=== PATIENT | male | born 1955 | race Two or more races ===

== ENCOUNTER 2017-11-16 21:05 | Emergency (ER) | payer MEDICARE, OTHER ==
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
[2017-11-16 21:42] LABS: Basophils % (A) 1 %; Eosinophils # (A) 0.1 k/uL (0-0.7); Eosinophils % (A) 2 %; HCT 40.2 % (39.0-53.0); HGB 13.1 gm/dL (13.0-17.5); Lymphocytes % (A) 43 %; MCH 27.3 pg (25.0-35.0); MCHC 32.6 g/dL (31.0-37.0); MCV 83.7 fL (80.0-100.0); Monocytes # (A) 0.5 k/uL (0-1.0); Monocytes % (A) 8 %; Neutrophils # (A) 3.2 k/uL (1.3-7.7); Neutrophils % (A) 45 %; Platelet Count 239 k/uL (150-450); RBC 4.81 m/uL (4.30-5.90); RDW 13.8 % (11.5-15.5)
[2017-11-16 21:59] LABS: INR 1.2 (<1.2); Partial Thromboplastin Time 23.1 sec (22.0-30.0); Prothrombin Time 11.2 sec (9.0-12.0)
--- NOTE | 2017-11-16 22:02 | XR ---
EXAMINATION TYPE: XR chest 1V portable DATE OF EXAM: 11/16/2017 COMPARISON: NONE INDICATION: Chest pain TECHNIQUE: Single frontal view of the chest is obtained. FINDINGS: The heart size is normal. The pulmonary vasculature is normal. The lungs are clear. Sternotomy wires from previous CABG are evident. IMPRESSION: 1. No acute pulmonary process.
[2017-11-16 22:04] LABS: Albumin 4.2 g/dL (3.5-5.0); Calcium 9.9 mg/dL (8.4-10.2); Magnesium 2.1 mg/dL (1.6-2.3); Potassium 5.8 mmol/L (3.5-5.1); Total Bilirubin 0.3 mg/dL (0.2-1.3); Total Protein 7.3 g/dL (6.3-8.2)
[2017-11-16] MEDS ORDERED: SODIUM POLYSTYRENE SULFONATE 15 GM/60 ML BOTTLE PO STA (23:03)
[2017-11-16 23:09] VITALS: RESP 20
[2017-11-17 00:52] VITALS: BP 116/59; PULSE 61; TEMP 97
== END 2017-11-17 00:52 | disposition home or self-care (01) ==
LOC: EC 21:05
DX: R07.2 Precordial pain (principal); F03.90 Unspecified dementia, unspecified severity, without behavioral disturbance, psychotic disturbance, mood disturbance, and anxiety; E87.5 Hyperkalemia; N28.9 Disorder of kidney and ureter, unspecified; Z88.8 Allergy status to other drugs, medicaments and biological substances
CPT/HCPCS: 36415; 71045; 80053; 83735; 84484; 85025; 85610; 85730; 93005; 99285

== ENCOUNTER 2017-12-01 17:30 | Emergency (ER) | payer MEDICARE, OTHER ==
[2017-12-01 17:48] VITALS: RESP 18
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
[2017-12-01 19:00] LABS: Basophils # (A) 0.1 k/uL (0-0.2); Basophils % (A) 1 %; Eosinophils # (A) 0.2 k/uL (0-0.7); Eosinophils % (A) 2 %; HCT 40.2 % (39.0-53.0); HGB 13.4 gm/dL (13.0-17.5); Lymphocytes # (A) 3.5 k/uL (1.0-4.8); Lymphocytes % (A) 46 %; MCH 28.1 pg (25.0-35.0); MCHC 33.4 g/dL (31.0-37.0); Mean Platelet Volume 7.6; Monocytes # (A) 0.6 k/uL (0-1.0); Monocytes % (A) 8 %; Neutrophils # (A) 3.1 k/uL (1.3-7.7); Neutrophils % (A) 40 %; Platelet Count 244 k/uL (150-450); RBC 4.79 m/uL (4.30-5.90); RDW 14.6 % (11.5-15.5); WBC 7.6 k/uL (3.8-10.6)
[2017-12-01 19:09] LABS: Appearance,Urine Clear (Clear); Bilirubin,Urine Negative (Negative); Blood,Urine Negative (Negative); Color,Urine Light Yellow; Glucose,Urine (UA) 1+ (Negative); Ketones,Urine Negative (Negative); Leukocyte Esterase,Urine Negative (Negative); Nitrite,Urine Negative (Negative); PH, Urine 7.5 (5.0-8.0); Protein,Urine Negative (Negative); Urobilinogen,Urine <2.0 mg/dL (<2.0)
[2017-12-01 19:10] LABS: Albumin 4.2 g/dL (3.5-5.0); Calcium 9.8 mg/dL (8.4-10.2); Potassium 5.3 mmol/L (3.5-5.1); Total Bilirubin 0.3 mg/dL (0.2-1.3); Total Protein 7.2 g/dL (6.3-8.2)
[2017-12-01 19:12] LABS: Amphetamine Screen,Urine Not Detected (NotDetected); Benzodiazepines Screen,Urine Not Detected (NotDetected); Cocaine Screen,Urine Not Detected (NotDetected); Opiate Screen,Urine Not Detected (NotDetected); Phencyclidine Screen,Urine Not Detected (NotDetected); Urn Cannabinoid Scrn Not Detected (NotDetected)
[2017-12-01 19:13] LABS: Barbiturate Screen,Urine Not Detected (NotDetected); Methadone Screen, Urine Not Detected (NotDetected); Oxycodone Screen, Urine Not Detected (NotDetected); Tricyclic Antidepressant,Urine Detected (NotDetected)
[2017-12-01 21:21] VITALS: BP 153/73; PULSE 68; TEMP 97.3
== END 2017-12-01 21:33 | disposition short-term general hospital (02) ==
LOC: EC 17:30
DX: F03.90 Unspecified dementia, unspecified severity, without behavioral disturbance, psychotic disturbance, mood disturbance, and anxiety (principal); R45.1 Restlessness and agitation; I25.119 Atherosclerotic heart disease of native coronary artery with unspecified angina pectoris; E11.9 Type 2 diabetes mellitus without complications; K21.9 Gastro-esophageal reflux disease without esophagitis; E78.5 Hyperlipidemia, unspecified; I10 Essential (primary) hypertension; G40.909 Epilepsy, unspecified, not intractable, without status epilepticus; Z79.4 Long term (current) use of insulin; Z79.01 Long term (current) use of anticoagulants; Z79.82 Long term (current) use of aspirin; Z79.899 Other long term (current) drug therapy; Z88.8 Allergy status to other drugs, medicaments and biological substances
CPT/HCPCS: 36415; 80053; 80306; 81003; 82075; 85025; 93005; 99285

== ENCOUNTER 2017-12-05 17:19 | Emergency (ER) | payer MEDICARE, OTHER ==
[2017-12-05 17:38] VITALS: TEMP 98
--- NOTE | 2017-12-05 17:38 | ED ---
Medical Clearance HPI - General Stated complaint: Mental Health Time Seen by Provider: 12/05/17 17:25 - History of Present Illness Initial comments: Patient is a 62-year-old male presenting from [facility] for aggressive behavior. He has been here earlier this week for similar type behavior and the facility petition him. Patient is combative and unable and unwilling to provide review of systems. Home medications: Home Medications Medication Instructions Recorded Confirmed Acarbose 100 mg PO BID 12/01/17 12/05/17 Acetaminophen Tab [Tylenol Tab] 650 mg PO Q4H PRN 12/01/17 12/05/17 Aspirin [Adult Low Dose Aspirin EC] 81 mg PO DAILY 12/01/17 12/05/17 Atorvastatin Calcium [Lipitor] 20 mg PO HS 12/01/17 12/05/17 Bisacodyl [Dulcolax] 10 mg RECTAL DAILY PRN 12/01/17 12/05/17 Cholecalciferol [Vitamin D3] 1,000 unit PO HS 12/01/17 12/05/17 Clopidogrel Bisulfate [Plavix] 75 mg PO DAILY 12/01/17 12/05/17 Cyanocobalamin [Vitamin B-12] 1,000 mcg PO DAILY 12/01/17 12/05/17 Divalproex Sodium 500 mg PO BID 12/01/17 12/05/17 Famotidine [Pepcid] 20 mg PO HS 12/01/17 12/05/17 Gemfibrozil [Lopid] 300 mg PO BID 12/01/17 12/05/17 Insulin Aspart [NovoLOG 6 unit SQ TID 12/01/17 12/05/17 (formulary)] Lacosamide [Vimpat] 100 mg PO BID 12/01/17 12/05/17 Metoprolol Tartrate [Lopressor] 12.5 mg PO BID 12/01/17 12/05/17 PARoxetine HCL 30 mg PO HS 12/01/17 12/05/17 Polyethylene Glycol 3350 [Miralax] 17 gm PO BID 12/01/17 12/05/17 Sennosides [Senna] 17.2 mg PO HS 12/01/17 12/05/17 glipiZIDE [Glucotrol] 10 mg PO BID 12/01/17 12/05/17 Insulin Glargine,Hum.rec.anlog 44 unit SQ HS 12/05/17 12/05/17 [Gudelia Walker U-100] Allergies/Adverse reactions: Allergies Allergy/AdvReac Type Severity Reaction Status Date / Time metformin AdvReac Unknown Verified 12/05/17 18:33 Review of Systems ROS Statement: Those systems with pertinent positive or pertinent negative responses have been documented in the HPI. Unable to complete review of systems as the patient is agitated ROS Other: All systems not noted in ROS Statement are negative. Past Medical History Past Medical History: Coronary Artery Disease (CAD), Dementia, Diabetes Mellitus , GERD/Reflux, Hyperlipidemia, Hypertension, Seizure Disorder Additional Past Medical History / Comment(s): angina, History of Any Multi-Drug Resistant Organisms: None Reported Past Surgical History: Unable to Obtain Additional Past Surgical History / Comment(s): 2 heart sugeries but is unsure what was done. Past Psychological History: No Psychological Hx Reported Smoking Status: Never smoker Past Alcohol Use History: None Reported Past Drug Use History: None Reported General Exam - General Exam Comments Initial Comments: Constitutional: Pt is oriented to person, place, and time. Pt appears well- developed and well-nourished. HENT: Head: Normocephalic and atraumatic. Eyes: EOM are normal. Neck: Normal range of motion. Neck supple. Cardiovascular: Normal rate, regular rhythm, S1 normal, S2 normal and normal heart sounds. Exam reveals no gallop and no friction rub. No murmur heard. Pulmonary/Chest: Effort normal and breath sounds normal. No tachypnea and no bradypnea. No respiratory distress. No wheezes or rales noted. Abdominal: Soft. Bowel sounds are normal. Pt exhibits no shifting dullness, no distension, no pulsatile liver, no fluid wave, no abdominal bruit and no ascites. There is no tenderness. There is no rigidity, no rebound, no guarding, no tenderness at McBurney's point and negative Bailon's sign. Musculoskeletal: Normal range of motion. Neurological: Pt is alert and oriented to person, place, and time. No cranial nerve deficit. Skin: Skin is warm and dry. No rash noted. Pt is not diaphoretic. No erythema. No pallor. Psychiatric: Patient is visibly agitated and angry walking about the room stating that he is going to walk out.. Course Vital Signs 12/05/17 12/05/17 17:35 23:44 Temperature 98.0 F 98.0 F Pulse Rate 70 62 Respiratory 16 18 Rate Blood Pressure 151/83 146/70 O2 Sat by Pulse 99 100 Oximetry - Reevaluation(s) Reevaluation #1: 12/05/17 19:28 Patient is becoming more belligerent and aggressive. Patient will be given 2 mg of Ativan IM. Reevaluation #2: 12/05/17 20:10 Spoke with psychiatry nurse and it is requested that laboratory studies as well as urinalysis be obtained to rule out possible infectious etiology. Medical Decision Making - Medical Decision Making Patient has been evaluated multiple times by psychiatric nurse and it is determined that the patient will be placed in a geriatric psych facility. There is no evidence of infectious process causing the symptoms. - Lab Data Result diagrams: 12/05/17 20:23 12/05/17 20:23 Lab Results 12/05/17 12/05/17 12/05/17 Range/Units 20:23 20:23 20:23 WBC 8.3 (3.8-10.6) k/uL RBC 4.80 (4.30-5.90) m/uL Hgb 13.4 (13.0-17.5) gm/dL Hct 39.8 (39.0-53.0) % MCV 82.8 (80.0-100.0) fL MCH 27.9 (25.0-35.0) pg MCHC 33.6 (31.0-37.0) g/dL RDW 14.7 (11.5-15.5) % Plt Count 218 (150-450) k/uL Neutrophils % 55 % Lymphocytes % 35 % Monocytes % 7 % Eosinophils % 1 % Basophils % 0 % Neutrophils # 4.5 (1.3-7.7) k/uL Lymphocytes # 2.9 (1.0-4.8) k/uL Monocytes # 0.6 (0-1.0) k/uL Eosinophils # 0.1 (0-0.7) k/uL Basophils # 0.0 (0-0.2) k/uL Sodium 136 L (137-145) mmol/L Potassium 5.2 H (3.5-5.1) mmol/L Chloride 96 L (98-107) mmol/L Carbon Dioxide 23 (22-30) mmol/L Anion Gap 17 mmol/L BUN 21 H (9-20) mg/dL Creatinine 1.50 H (0.66-1.25) mg/dL Est GFR (CKD-EPI)AfAm 56 (>60 ml/min/1.73 sqM) Est GFR (CKD-EPI)NonAf 49 (>60 ml/min/1.73 sqM) Glucose 229 H (74-99) mg/dL POC Glucose (mg/dL) (75-99) mg/dL POC Glu Account Financial Manager ID Calcium 9.9 (8.4-10.2) mg/dL Magnesium 2.0 (1.6-2.3) mg/dL Total Bilirubin 0.3 (0.2-1.3) mg/dL AST 18 (17-59) U/L ALT 24 (21-72) U/L Alkaline Phosphatase 72 (38-126) U/L Total Protein 7.6 (6.3-8.2) g/dL Albumin 4.5 (3.5-5.0) g/dL Urine Color Yellow Urine Appearance Clear (Clear) Urine pH 6.0 (5.0-8.0) Ur Specific [place] 1.014 (1.001-1.035) Urine Protein Trace H (Negative) Urine Glucose (UA) 3+ H (Negative) Urine Ketones Negative (Negative) Urine Blood Negative (Negative) Urine Nitrite Negative (Negative) Urine Bilirubin Negative (Negative) Urine Urobilinogen <2.0 (<2.0) mg/dL Ur Leukocyte Esterase Negative (Negative) Urine Opiates Screen Not Detected (NotDetected) Ur Oxycodone Screen Not Detected (NotDetected) Urine Methadone Screen Not Detected (NotDetected) Ur Propoxyphene Screen Not Detected (NotDetected) Ur Barbiturates Screen Not Detected (NotDetected) U Tricyclic Antidepress Detected H (NotDetected) Ur Phencyclidine Scrn Not Detected (NotDetected) Ur Amphetamines Screen Not Detected (NotDetected) U Methamphetamines Scrn Not Detected (NotDetected) U Benzodiazepines Scrn Not Detected (NotDetected) Urine Cocaine Screen Not Detected (NotDetected) U Marijuana (THC) Screen Not Detected (NotDetected) 05/25/18 Range/Units 22:14 WBC (3.8-10.6) k/uL RBC (4.30-5.90) m/uL Hgb (13.0-17.5) gm/dL Hct (39.0-53.0) % MCV (80.0-100.0) fL MCH (25.0-35.0) pg MCHC (31.0-37.0) g/dL RDW (11.5-15.5) % Plt Count (150-450) k/uL Neutrophils % % Lymphocytes % % Monocytes % % Eosinophils % % Basophils % % Neutrophils # (1.3-7.7) k/uL Lymphocytes # (1.0-4.8) k/uL Monocytes # (0-1.0) k/uL Eosinophils # (0-0.7) k/uL Basophils # (0-0.2) k/uL Sodium (137-145) mmol/L Potassium (3.5-5.1) mmol/L Chloride (98-107) mmol/L Carbon Dioxide (22-30) mmol/L Anion Gap mmol/L BUN (9-20) mg/dL Creatinine (0.66-1.25) mg/dL Est GFR (CKD-EPI)AfAm (>60 ml/min/1.73 sqM) Est GFR (CKD-EPI)NonAf (>60 ml/min/1.73 sqM) Glucose (74-99) mg/dL POC Glucose (mg/dL) 255 H (75-99) mg/dL POC Glu Account Financial Manager ID David, Leora Calcium (8.4-10.2) mg/dL Magnesium (1.6-2.3) mg/dL Total Bilirubin (0.2-1.3) mg/dL AST (17-59) U/L ALT (21-72) U/L Alkaline Phosphatase (38-126) U/L Total Protein (6.3-8.2) g/dL Albumin (3.5-5.0) g/dL Urine Color Urine Appearance (Clear) Urine pH (5.0-8.0) Ur Specific [place] (1.001-1.035) Urine Protein (Negative) Urine Glucose (UA) (Negative) Urine Ketones (Negative) Urine Blood (Negative) Urine Nitrite (Negative) Urine Bilirubin (Negative) Urine Urobilinogen (<2.0) mg/dL Ur Leukocyte Esterase (Negative) Urine Opiates Screen (NotDetected) Ur Oxycodone Screen (NotDetected) Urine Methadone Screen (NotDetected) Ur Propoxyphene Screen (NotDetected) Ur Barbiturates Screen (NotDetected) U Tricyclic Antidepress (NotDetected) Ur Phencyclidine Scrn (NotDetected) Ur Amphetamines Screen (NotDetected) U Methamphetamines Scrn (NotDetected) U Benzodiazepines Scrn (NotDetected) Urine Cocaine Screen (NotDetected) U Marijuana (THC) Screen (NotDetected) Disposition Clinical Impression: Suicidal ideation Disposition: TRANSFER TO PSYCH HOSP/UNIT Condition: Fair Referrals: None,Stated [Primary Care Provider] - 1-2 days Time of Disposition: 22:20
[2017-12-05] MEDS ORDERED: LORazepam 2 MG/ML INJ IM STA (19:27)
[2017-12-05 20:37] LABS: Appearance,Urine Clear (Clear); Basophils % (A) 0 %; Bilirubin,Urine Negative (Negative); Blood,Urine Negative (Negative); Color,Urine Yellow; Eosinophils # (A) 0.1 k/uL (0-0.7); Eosinophils % (A) 1 %; Glucose,Urine (UA) 3+ (Negative); HCT 39.8 % (39.0-53.0); HGB 13.4 gm/dL (13.0-17.5); Ketones,Urine Negative (Negative); Leukocyte Esterase,Urine Negative (Negative); Lymphocytes # (A) 2.9 k/uL (1.0-4.8); Lymphocytes % (A) 35 %; MCH 27.9 pg (25.0-35.0); MCHC 33.6 g/dL (31.0-37.0); MCV 82.8 fL (80.0-100.0); Mean Platelet Volume 7.9; Monocytes # (A) 0.6 k/uL (0-1.0); Monocytes % (A) 7 %; Neutrophils # (A) 4.5 k/uL (1.3-7.7); Neutrophils % (A) 55 %; Nitrite,Urine Negative (Negative); Platelet Count 218 k/uL (150-450); Protein,Urine Trace (Negative); RDW 14.7 % (11.5-15.5); Specific Gravity,Urine 1.014 (1.001-1.035); Urobilinogen,Urine <2.0 mg/dL (<2.0); WBC 8.3 k/uL (3.8-10.6)
[2017-12-05 20:49] LABS: Amphetamine Screen,Urine Not Detected (NotDetected); Barbiturate Screen,Urine Not Detected (NotDetected); Benzodiazepines Screen,Urine Not Detected (NotDetected); Cocaine Screen,Urine Not Detected (NotDetected); Methadone Screen, Urine Not Detected (NotDetected); Opiate Screen,Urine Not Detected (NotDetected); Oxycodone Screen, Urine Not Detected (NotDetected); Phencyclidine Screen,Urine Not Detected (NotDetected); Tricyclic Antidepressant,Urine Detected (NotDetected); Urn Cannabinoid Scrn Not Detected (NotDetected)
[2017-12-05 20:50] LABS: Albumin 4.5 g/dL (3.5-5.0); Calcium 9.9 mg/dL (8.4-10.2); Potassium 5.2 mmol/L (3.5-5.1); Total Bilirubin 0.3 mg/dL (0.2-1.3); Total Protein 7.6 g/dL (6.3-8.2)
[2017-12-05 22:18] LABS: Glucose,Whole Blood 255 mg/dL (75-99)
[2017-12-05 23:45] VITALS: BP 146/70; PULSE 62; RESP 18
== END 2017-12-06 00:48 ==
LOC: EC 17:19
DX: R45.851 Suicidal ideations (principal); R45.1 Restlessness and agitation; R45.4 Irritability and anger; R45.6 Violent behavior; E78.5 Hyperlipidemia, unspecified; E11.9 Type 2 diabetes mellitus without complications; I25.10 Atherosclerotic heart disease of native coronary artery without angina pectoris; G40.909 Epilepsy, unspecified, not intractable, without status epilepticus; K21.9 Gastro-esophageal reflux disease without esophagitis; Z79.4 Long term (current) use of insulin; Z79.82 Long term (current) use of aspirin; Z79.899 Other long term (current) drug therapy; Z88.8 Allergy status to other drugs, medicaments and biological substances
CPT/HCPCS: 82075; 36415; 80053; 83735; 85025; 81003; 80306; 99285; 96372; J2060

== ENCOUNTER 2018-02-13 21:34 | Emergency (ER) | payer MEDICARE, OTHER ==
[2018-02-13 21:41] VITALS: RESP 16; TEMP 98
[2018-02-13] MEDS ORDERED: ZIPRASIDONE 20 MG VIAL IM STA (22:03)
[2018-02-13] MEDS ORDERED: LORazepam 2 MG/ML INJ IM STA (22:03)
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
[2018-02-14 01:35] LABS: Anisocytosis Slight; Basophils % (A) 0 %; Eosinophils # (A) 0.1 k/uL (0-0.7); Eosinophils % (A) 1 %; HCT 38.6 % (39.0-53.0); Lymphocytes # (A) 2.4 k/uL (1.0-4.8); Lymphocytes % (A) 31 %; MCH 27.2 pg (25.0-35.0); MCHC 31.1 g/dL (31.0-37.0); MCV 87.6 fL (80.0-100.0); Monocytes # (A) 0.5 k/uL (0-1.0); Monocytes % (A) 7 %; Neutrophils # (A) 4.5 k/uL (1.3-7.7); Neutrophils % (A) 59 %; Platelet Count 226 k/uL (150-450); RDW 16.7 % (11.5-15.5); WBC 7.7 k/uL (3.8-10.6)
[2018-02-14 01:43] LABS: Calcium 9.4 mg/dL (8.4-10.2)
[2018-02-14 01:45] LABS: Potassium 5.6 mmol/L (3.5-5.1)
[2018-02-14 05:09] VITALS: BP 141/80; PULSE 77
== END 2018-02-14 05:58 ==
LOC: EC 21:34
DX: F39 Unspecified mood [affective] disorder (principal); I25.10 Atherosclerotic heart disease of native coronary artery without angina pectoris; E11.9 Type 2 diabetes mellitus without complications; K21.9 Gastro-esophageal reflux disease without esophagitis; E78.5 Hyperlipidemia, unspecified; I10 Essential (primary) hypertension; G40.409 Other generalized epilepsy and epileptic syndromes, not intractable, without status epilepticus; Z79.82 Long term (current) use of aspirin; Z79.01 Long term (current) use of anticoagulants; Z79.4 Long term (current) use of insulin; Z79.899 Other long term (current) drug therapy; Z88.8 Allergy status to other drugs, medicaments and biological substances
CPT/HCPCS: 99285; 96372 ×2; 82075; 36415; 80048; 84443; 85025; J2060; J3486

== ENCOUNTER 2018-03-06 21:47 | Emergency (ER) | payer MEDICARE, OTHER ==
--- NOTE | 2018-03-06 22:08 | ED ---
General Adult HPI - General Stated complaint: Mental Health Time Seen by Provider: 03/06/18 22:08 - History of Present Illness Initial comments: Tylor Baca" is a 62 yo male who presents to the ED via EMS from extended care facility where he lives for mental health evaluation after he had a violent outburst at his nursing facility. Per staff he became agitated and was threatening and striking out at them, per their protocol this behavior requires transfer to the hospital for a psychiatric evaluation. They did not petition the patient. Patient states that he does not like the medications he has to take, he states that his seizure medications cause him to be groggy and sleepy and he does not want to take them. He became agitated today because he was being made to take his medications and he tried to push staff away and refuse to take his medications. He denies any intent to harm himself or others. - Related Data Home Medications Medication Instructions Recorded Confirmed Acarbose 100 mg PO BID@08,16 12/01/17 03/06/18 Acetaminophen Tab [Tylenol Tab] 650 mg PO Q4H PRN 12/01/17 03/06/18 Aspirin [Adult Low Dose Aspirin EC] 81 mg PO DAILY 12/01/17 03/06/18 Atorvastatin Calcium [Lipitor] 20 mg PO HS 12/01/17 03/06/18 Bisacodyl [Dulcolax] 10 mg RECTAL DAILY PRN 12/01/17 03/06/18 Cholecalciferol [Vitamin D3] 1,000 unit PO DAILY 12/01/17 03/06/18 Clopidogrel Bisulfate [Plavix] 75 mg PO DAILY 12/01/17 03/06/18 Cyanocobalamin [Vitamin B-12] 1,000 mcg PO DAILY 12/01/17 03/06/18 Divalproex Sodium 500 mg PO BID 12/01/17 03/06/18 Famotidine [Pepcid] 20 mg PO HS 12/01/17 03/06/18 Gemfibrozil [Lopid] 300 mg PO BID 12/01/17 03/06/18 Insulin Aspart [NovoLOG 6 unit SQ TID@0830,1230,1730 12/01/17 03/06/18 (formulary)] Lacosamide [Vimpat] 100 mg PO BID 12/01/17 03/06/18 Metoprolol Tartrate [Lopressor] 12.5 mg PO BID 12/01/17 03/06/18 Polyethylene Glycol 3350 [Miralax] 17 gm PO BID 12/01/17 03/06/18 Sennosides [Senna] 17.2 mg PO Q12H 12/01/17 03/06/18 glipiZIDE [Glucotrol] 10 mg PO BID@08,16 12/01/17 03/06/18 Insulin Glargine [Lantus] 60 unit SQ HS 03/06/18 03/06/18 LORazepam [Ativan] 1 mg PO Q6H PRN 03/06/18 03/06/18 Mirtazapine [Remeron] 30 mg PO HS 03/06/18 03/06/18 OLANZapine [ZyPREXA] 5 mg PO Q12H 03/06/18 03/06/18 Allergies Allergy/AdvReac Type Severity Reaction Status Date / Time metformin AdvReac Unknown Verified 03/06/18 22:25 Review of Systems ROS Statement: Those systems with pertinent positive or pertinent negative responses have been documented in the HPI. ROS Other: All systems not noted in ROS Statement are negative. Past Medical History Past Medical History: Coronary Artery Disease (CAD), Dementia, Diabetes Mellitus , GERD/Reflux, Hyperlipidemia, Hypertension, Seizure Disorder Additional Past Medical History / Comment(s): angina, History of Any Multi-Drug Resistant Organisms: None Reported Past Surgical History: Unable to Obtain Additional Past Surgical History / Comment(s): 2 heart sugeries but is unsure what was done. Past Psychological History: No Psychological Hx Reported Smoking Status: Never smoker Past Alcohol Use History: None Reported Past Drug Use History: None Reported General Exam Limitations: altered mental status (dementia) General appearance: alert, in no apparent distress Head exam: Present: atraumatic, normocephalic Eye exam: Present: PERRL ENT exam: Present: mucous membranes moist Respiratory exam: Absent: respiratory distress Cardiovascular Exam: Present: regular rate GI/Abdominal exam: Present: soft. Absent: distended Rectal exam: Present: deferred Extremities exam: Present: full ROM Neurological exam: Present: alert, other (oriented to person, aware he is in the hospital, aware of events leading up to transfer to hospital, unaware of day /date) Psychiatric exam: Present: agitated Skin exam: Present: warm, dry, intact Course Vital Signs 03/06/18 03/07/18 22:01 00:09 Temperature 98.0 F 97.8 F Pulse Rate 93 74 Respiratory 18 18 Rate Blood Pressure 143/74 147/74 O2 Sat by Pulse 96 96 Oximetry Medical Decision Making - Medical Decision Making Patient was seen and evaluated, history was obtained from the patient and EMS Patient initially agitated and uncooperative, however was reasonable and after being spoken to about the plan for evaluation he was agreeable, he changed out of is closed and provided history as best he could Patient's breath alcohol is negative Patient is medically cleared for evaluation by psych Patient was evaluated by psych who state the patient is not a threat to himself or others, is safe for transfer back to his extended care facility - they recommended the patient's antiepileptics be changed to rapidly dissolving form they can be given dissolved and liquids to prevent agitating the patient. This recommendation was typed and the patient's discharge summary which will be provided to the care facility. Disposition Clinical Impression: Situational depression Disposition: HOME SELF-CARE Condition: Good Instructions: Depression (ED) Additional Instructions: Recommend that patient's oral Zyprexa he changed to a rapidly dissolving form so that he could be administered with less emotional upset from the patient. Is patient prescribed a controlled substance at d/c from ED?: No Referrals: Nonstaff,Physician [Primary Care Provider] - 1-2 days Time of Disposition: 23:38
[2018-03-06 22:26] VITALS: RESP 18
[2018-03-07 00:12] VITALS: BP 147/74; PULSE 74; TEMP 97.8
== END 2018-03-07 00:12 | disposition home or self-care (01) ==
LOC: EC 21:47
DX: F43.21 Adjustment disorder with depressed mood (principal); R45.1 Restlessness and agitation; F03.90 Unspecified dementia, unspecified severity, without behavioral disturbance, psychotic disturbance, mood disturbance, and anxiety; E11.9 Type 2 diabetes mellitus without complications; E78.5 Hyperlipidemia, unspecified; I10 Essential (primary) hypertension; I25.10 Atherosclerotic heart disease of native coronary artery without angina pectoris; K21.9 Gastro-esophageal reflux disease without esophagitis; G40.909 Epilepsy, unspecified, not intractable, without status epilepticus; Z79.4 Long term (current) use of insulin; Z79.02 Long term (current) use of antithrombotics/antiplatelets; Z79.82 Long term (current) use of aspirin; Z79.899 Other long term (current) drug therapy; Z88.8 Allergy status to other drugs, medicaments and biological substances
CPT/HCPCS: 82075; 99285

== ENCOUNTER 2018-03-08 12:35 | Emergency (ER) | payer MEDICARE, OTHER ==
[2018-03-08 12:43] VITALS: RESP 18; TEMP 98.7
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
[2018-03-08 13:53] LABS: Amphetamine Screen,Urine Not Detected (NotDetected); Barbiturate Screen,Urine Not Detected (NotDetected); Benzodiazepines Screen,Urine Detected (NotDetected); Cocaine Screen,Urine Not Detected (NotDetected); Methadone Screen, Urine Not Detected (NotDetected); Opiate Screen,Urine Not Detected (NotDetected); Oxycodone Screen, Urine Not Detected (NotDetected); Phencyclidine Screen,Urine Not Detected (NotDetected); Tricyclic Antidepressant,Urine Not Detected (NotDetected); Urn Cannabinoid Scrn Not Detected (NotDetected)
[2018-03-08 15:44] LABS: Glucose,Whole Blood 278 mg/dL (75-99)
[2018-03-08] MEDS ORDERED: OLANZapine ODT 5 MG TAB PO STA (15:58)
[2018-03-08 16:21] VITALS: BP 140/82; PULSE 100
[2018-03-09 11:33] LABS: Hepatitis C IgG Antibody Non-Reactive (Non-Reactive)
== END 2018-03-08 17:07 | disposition home or self-care (01) ==
LOC: EC 12:35
DX: R45.1 Restlessness and agitation (principal); I25.10 Atherosclerotic heart disease of native coronary artery without angina pectoris; F03.90 Unspecified dementia, unspecified severity, without behavioral disturbance, psychotic disturbance, mood disturbance, and anxiety; E11.9 Type 2 diabetes mellitus without complications; K21.9 Gastro-esophageal reflux disease without esophagitis; E78.5 Hyperlipidemia, unspecified; I10 Essential (primary) hypertension; G40.909 Epilepsy, unspecified, not intractable, without status epilepticus; Z79.4 Long term (current) use of insulin; Z79.01 Long term (current) use of anticoagulants; Z79.82 Long term (current) use of aspirin; Z79.899 Other long term (current) drug therapy; Z88.8 Allergy status to other drugs, medicaments and biological substances
CPT/HCPCS: 36415; 80306; 82075; 86701; 86704; 86803; 87340; 99285

== ENCOUNTER 2018-03-09 15:57 | Emergency (ER) | payer MEDICARE, OTHER ==
[2018-03-09 16:05] VITALS: BP 140/86; PULSE 90; RESP 18; TEMP 97
--- NOTE | 2018-03-09 16:24 | ED ---
General Adult HPI - General Chief complaint: Psychiatric Symptoms Stated complaint: Mental HEalth Time Seen by Provider: 03/09/18 16:19 Source: EMS Mode of arrival: EMS Limitations: altered mental status - History of Present Illness Initial comments: Patient is a 62-year-old male with history is documented below who presents to the emergency department today for a repeat psychiatric evaluation after he became agitated with staff that his long-term care facility. Staff reports that the patient became agitated and threatening to them, they feel that he needs a psychiatric evaluation so he was petitioned. Patient was evaluated by our psychiatric care team here in the emergency department 3 days ago at which time it was determined there is no indication for involuntary psychiatric hospitalization. Patient is awake, alert he is very pleasant. He states that the caregivers at his care facility become very frustrated with him and that they have a hard time communicating. He feels that people do not understand his speech. He reports that he doesn't want to take his medications and he tells them know and they become very angry at him. He states that he has no complaints today. - Related Data Home Medications Medication Instructions Recorded Confirmed Acarbose 100 mg PO BID@0800,1800 12/01/17 03/08/18 Acetaminophen Tab [Tylenol Tab] 650 mg PO Q4H PRN 12/01/17 03/08/18 Aspirin [Adult Low Dose Aspirin EC] 81 mg PO DAILY@79912/01/17 03/08/18 Atorvastatin Calcium [Lipitor] 20 mg PO HS@199912/01/17 03/08/18 Bisacodyl [Dulcolax] 10 mg RECTAL DAILY PRN 12/01/17 03/08/18 Cholecalciferol [Vitamin D3] 1,000 unit PO DAILY@79912/01/17 03/08/18 Clopidogrel Bisulfate [Plavix] 75 mg PO DAILY@79912/01/17 03/08/18 Cyanocobalamin [Vitamin B-12] 1,000 mcg PO DAILY@79912/01/17 03/08/18 Famotidine [Pepcid] 20 mg PO HS@199912/01/17 03/08/18 Gemfibrozil [Lopid] 300 mg PO BID@08,199912/01/17 03/08/18 Insulin Aspart [NovoLOG 18 unit SQ TID@0830,1230,1730 12/01/17 03/08/18 (formulary)] Lacosamide [Vimpat] 100 mg PO BID@0800,199912/01/17 03/08/18 Metoprolol Tartrate [Lopressor] 12.5 mg PO BID@0800,199912/01/17 03/08/18 Polyethylene Glycol 3350 [Miralax] 17 gm PO BID@0800,199912/01/17 03/08/18 Sennosides [Senna] 17.2 mg PO BID@0800,199912/01/17 03/08/18 glipiZIDE [Glucotrol] 10 mg PO BID@0800,1800 12/01/17 03/08/18 Insulin Glargine [Lantus] 60 unit SQ HS@199903/06/18 03/08/18 LORazepam [Ativan] 1 mg PO Q6H PRN 03/06/18 03/08/18 Mirtazapine [Remeron] 30 mg PO HS@199903/06/18 03/08/18 OLANZapine [ZyPREXA] 5 mg PO BID@0800,199903/06/18 03/08/18 Divalproex [Depakote] 750 mg PO BID@0800,199903/08/18 03/08/18 Previous Rx's Medication Instructions Recorded OLANZapine [ZyPREXA Zydis] 5 mg PO BID #28 tab.rapdis 03/08/18 Allergies Allergy/AdvReac Type Severity Reaction Status Date / Time metformin AdvReac Unknown Verified 03/08/18 13:03 Review of Systems ROS Statement: Those systems with pertinent positive or pertinent negative responses have been documented in the HPI. ROS Other: All systems not noted in ROS Statement are negative. Past Medical History Past Medical History: Coronary Artery Disease (CAD), Dementia, Diabetes Mellitus , GERD/Reflux, Hyperlipidemia, Hypertension, Seizure Disorder Additional Past Medical History / Comment(s): angina, History of Any Multi-Drug Resistant Organisms: None Reported Past Surgical History: Unable to Obtain Additional Past Surgical History / Comment(s): 2 heart sugeries but is unsure what was done. Past Psychological History: No Psychological Hx Reported Smoking Status: Never smoker Past Alcohol Use History: None Reported Past Drug Use History: None Reported General Exam - General Exam Comments Initial Comments: GENERAL: Patient is well-developed and well-nourished. Patient is nontoxic and well- hydrated and is in no distress. HENT: Normocephalic, Atraumatic. Neck is soft and supple. No significant lymphadenopathy is noted. Oropharynx is clear. Moist mucous membranes. Neck has full range of motion without eliciting any pain. EYES: The sclera were anicteric and conjunctiva were pink and moist. Extraocular movements were intact and pupils were equal round and reactive to light. Eyelids were unremarkable. PULMONARY: Unlabored respirations. Good breath sounds bilaterally. No audible rales rhonchi or wheezing was noted. CARDIOVASCULAR: There is a regular rate and rhythm without any murmurs gallops or rubs. ABDOMEN: Soft and nontender with normal bowel sounds. SKIN: Skin is clear with no lesions or rashes and otherwise unremarkable. NEUROLOGIC: Patient is alert and oriented x3. Cranial nerves II through XII are grossly intact. Motor and sensory are also intact. Normal speech, volume and content. Symmetrical smile. MUSCULOSKELETAL: Normal extremities with adequate strength and full range of motion. No lower extremity swelling or edema. No calf tenderness. LYMPHATICS: No significant lymphadenopathy is noted PSYCHIATRIC: Normal psychiatric evaluation. Some mild confusion consistent with dementia. Limitations: no limitations Limitations: altered mental status Course Vital Signs 03/09/18 16:00 Temperature 97.0 F L Pulse Rate 90 Respiratory 18 Rate Blood Pressure 140/86 O2 Sat by Pulse 97 Oximetry Medical Decision Making - Medical Decision Making The patient was seen and evaluated, history was obtained from the patient and EMS Evaluated this patient 3 days ago for similar complaint, caregivers at the extended care facility expressed frustration that the patient is refusing to take medications. Patient does admit to making threats. Patient has not harmed anybody. Medically cleared for evaluation by psychiatry Patient evaluated by psychiatry who at this time do not feel the patient requires inpatient psychiatric care. They do recommend that the patient's extended care facility obtain a composing machine operator to better communicate with this patient. remains awake, alert, appropriate, he ate 2 sandwiches and drink juice while in the emergency department. He offered no complaints and repeatedly asked if he could have some Taco Greer. At this time I do feel the patient is stable for discharge back to his care facility. - Lab Data Lab Results 03/09/18 Range/Units 17:40 Valproic Acid <10.0 ug/mL Disposition Clinical Impression: Situational depression Disposition: HOME SELF-CARE Condition: Stable Instructions: Depression (ED) Additional Instructions: Patient expresses significant frustration over communication difficulties with staff at his extended care facility. We recommend bringing in a composing machine operator to communicate his needs. Is patient prescribed a controlled substance at d/c from ED?: No Referrals: Nonstaff,Physician [REFERRING] - 1-2 days Time of Disposition: 18:12
== END 2018-03-09 18:33 | disposition home or self-care (01) ==
LOC: EC 15:57
DX: F43.21 Adjustment disorder with depressed mood (principal); R41.0 Disorientation, unspecified; E78.5 Hyperlipidemia, unspecified; I10 Essential (primary) hypertension; I25.10 Atherosclerotic heart disease of native coronary artery without angina pectoris; E11.9 Type 2 diabetes mellitus without complications; F03.90 Unspecified dementia, unspecified severity, without behavioral disturbance, psychotic disturbance, mood disturbance, and anxiety; G40.909 Epilepsy, unspecified, not intractable, without status epilepticus; K21.9 Gastro-esophageal reflux disease without esophagitis; Z79.4 Long term (current) use of insulin; Z79.82 Long term (current) use of aspirin; Z79.899 Other long term (current) drug therapy; Z88.8 Allergy status to other drugs, medicaments and biological substances
CPT/HCPCS: 36415; 80164; 82075; 99285

== ENCOUNTER 2018-06-02 16:26 | Emergency (ER) | payer MEDICARE, OTHER ==
[2018-06-02 16:32] VITALS: BP 158/65; PULSE 57; RESP 18; TEMP 98
[2018-06-02 16:52] LABS: Appearance,Urine Clear (Clear); Bilirubin,Urine Negative (Negative); Blood,Urine Negative (Negative); Color,Urine Yellow; Glucose,Urine (UA) Negative (Negative); Hyaline Casts,Urine 3 /lpf (0-2); Ketones,Urine Negative (Negative); Leukocyte Esterase,Urine Moderate (Negative); Nitrite,Urine Negative (Negative); Protein,Urine Negative (Negative); RBC,Urine <1 /hpf (0-5); Squamous Epithelial Cell,Urine <1 /hpf (0-4); Urobilinogen,Urine <2.0 mg/dL (<2.0); WBC,Urine 2 /hpf (0-5)
[2018-06-02 16:57] LABS: Amphetamine Screen,Urine Not Detected (NotDetected); Barbiturate Screen,Urine Not Detected (NotDetected); Benzodiazepines Screen,Urine Not Detected (NotDetected); Cocaine Screen,Urine Not Detected (NotDetected); Methadone Screen, Urine Not Detected (NotDetected); Opiate Screen,Urine Not Detected (NotDetected); Oxycodone Screen, Urine Not Detected (NotDetected); Phencyclidine Screen,Urine Not Detected (NotDetected); Tricyclic Antidepressant,Urine Detected (NotDetected); Urn Cannabinoid Scrn Not Detected (NotDetected)
--- NOTE | 2018-06-02 17:28 | ED ---
Psych HPI - General Chief Complaint: Psychiatric Symptoms Stated Complaint: MENTAL HEALTH, AGRESSIVE TO STAFF Time Seen by Provider: 06/02/18 16:34 Source: patient, EMS, RN notes reviewed Mode of arrival: EMS Limitations: no limitations - History of Present Illness Initial Comments: (63-year-old male presents emergency department for psychiatric evaluation. Patient had an outburst, aggression at [facility]. Patient was sent here for evaluation. He does have underlying dementia and has these episodes. Patient is not suicidal or homicidal. He has no complaints at this time. Patient denies any headache dizziness, chest pain or shortness of breath. Patient's been taking medications as directed. - Related Data Home Medications Medication Instructions Recorded Confirmed Aspirin [Adult Low Dose Aspirin EC] 81 mg PO DAILY@0800 12/01/17 06/02/18 Atorvastatin Calcium [Lipitor] 20 mg PO HS 12/01/17 06/02/18 Cholecalciferol [Vitamin D3] 1,000 unit PO DAILY@0800 12/01/17 06/02/18 Clopidogrel Bisulfate [Plavix] 75 mg PO DAILY@0800 12/01/17 06/02/18 Cyanocobalamin [Vitamin B-12] 1,000 mcg PO DAILY@0800 12/01/17 06/02/18 Famotidine [Pepcid] 20 mg PO HS@199912/01/17 06/02/18 Gemfibrozil [Lopid] 300 mg PO BID@0800,199912/01/17 06/02/18 Lacosamide [Vimpat] 100 mg PO BID@0800,199912/01/17 06/02/18 Metoprolol Tartrate [Lopressor] 12.5 mg PO BID@0800,199912/01/17 06/02/18 Polyethylene Glycol 3350 [Miralax] 17 gm PO BID@08,1999 PRN 12/01/17 06/02/18 Sennosides [Senna] 17.2 mg PO BID@0800,1999 PRN 12/01/17 06/02/18 glipiZIDE [Glucotrol] 10 mg PO BID@0900,209912/01/17 06/02/18 Insulin Glargine [Lantus] 20 unit SQ HS@209903/06/18 06/02/18 Mirtazapine [Remeron] 30 mg PO HS@199903/06/18 06/02/18 Divalproex [Depakote] 750 mg PO BID@0800,199903/08/18 06/02/18 Acarbose 100 mg PO BID@0900,1600 06/02/18 06/02/18 Donepezil HCl [Aricept] 5 mg PO HS@199906/02/18 06/02/18 Escitalopram [Lexapro] 5 mg PO DAILY@0900 06/02/18 06/02/18 Insulin Regular, Human [NovoLIN R] See Protocol SQ ACHS 06/02/18 06/02/18 risperiDONE [RisperDAL] 0.25 mg PO BID@0800,199906/02/18 06/02/18 Allergies Allergy/AdvReac Type Severity Reaction Status Date / Time metformin AdvReac Unknown Verified 06/02/18 16:51 Review of Systems ROS Statement: Those systems with pertinent positive or pertinent negative responses have been documented in the HPI. ROS Other: All systems not noted in ROS Statement are negative. Past Medical History Past Medical History: Coronary Artery Disease (CAD), Dementia, Diabetes Mellitus , GERD/Reflux, Hyperlipidemia, Hypertension, Seizure Disorder Additional Past Medical History / Comment(s): angina, History of Any Multi-Drug Resistant Organisms: None Reported Past Surgical History: Unable to Obtain Additional Past Surgical History / Comment(s): 2 heart sugeries but is unsure what was done. Past Psychological History: No Psychological Hx Reported Smoking Status: Never smoker Past Alcohol Use History: None Reported Past Drug Use History: None Reported General Exam Limitations: no limitations General appearance: alert, in no apparent distress Head exam: Present: atraumatic, normocephalic, normal inspection Neck exam: Present: normal inspection. Absent: tenderness, meningismus, lymphadenopathy Respiratory exam: Present: normal lung sounds bilaterally. Absent: respiratory distress, wheezes, rales, rhonchi, stridor Cardiovascular Exam: Present: regular rate, normal rhythm, normal heart sounds. Absent: systolic murmur, diastolic murmur, rubs, gallop, clicks Neurological exam: Present: alert, CN II-XII intact, reflexes normal. Absent: motor sensory deficit Psychiatric exam: Present: normal affect, normal mood Course Vital Signs 11/20/18 16:28 Temperature 98.0 F Pulse Rate 57 L Respiratory 18 Rate Blood Pressure 158/65 O2 Sat by Pulse 96 Oximetry Medical Decision Making - Medical Decision Making 63-year-old male presented for psychiatric evaluation. Patient had an outburst. Patient evaluated by EPS psychiatrist recommends discharge. EPS is discussed with son and counter caser. Patient is stable for return to [facility] - Lab Data Lab Results 06/02/18 Range/Units 16:34 Urine Color Yellow Urine Appearance Clear (Clear) Urine pH 6.0 (5.0-8.0) Ur Specific [place] 1.020 (1.001-1.035) Urine Protein Negative (Negative) Urine Glucose (UA) Negative (Negative) Urine Ketones Negative (Negative) Urine Blood Negative (Negative) Urine Nitrite Negative (Negative) Urine Bilirubin Negative (Negative) Urine Urobilinogen <2.0 (<2.0) mg/dL Ur Leukocyte Esterase Moderate H (Negative) Urine RBC <1 (0-5) /hpf Urine WBC 2 (0-5) /hpf Ur Squamous Epith Cells <1 (0-4) /hpf Hyaline Casts 3 H (0-2) /lpf Urine Opiates Screen Not Detected (NotDetected) Ur Oxycodone Screen Not Detected (NotDetected) Urine Methadone Screen Not Detected (NotDetected) Ur Propoxyphene Screen Not Detected (NotDetected) Ur Barbiturates Screen Not Detected (NotDetected) U Tricyclic Antidepress Detected H (NotDetected) Ur Phencyclidine Scrn Not Detected (NotDetected) Ur Amphetamines Screen Not Detected (NotDetected) U Methamphetamines Scrn Not Detected (NotDetected) U Benzodiazepines Scrn Not Detected (NotDetected) Urine Cocaine Screen Not Detected (NotDetected) U Marijuana (THC) Screen Not Detected (NotDetected) Disposition Clinical Impression: Outbursts of anger Disposition: HOME SELF-CARE Condition: Stable Instructions: Mood Disorders (ED) Additional Instructions: Please return to the Emergency Department if symptoms worsen or any other concerns. Is patient prescribed a controlled substance at d/c from ED?: No Referrals: Nonstaff,Physician [Primary Care Provider] - 1-2 days Time of Disposition: 17:28
== END 2018-06-02 18:45 | disposition home or self-care (01) ==
LOC: EC 16:26
DX: R45.4 Irritability and anger (principal); I25.119 Atherosclerotic heart disease of native coronary artery with unspecified angina pectoris; F03.90 Unspecified dementia, unspecified severity, without behavioral disturbance, psychotic disturbance, mood disturbance, and anxiety; E11.9 Type 2 diabetes mellitus without complications; K21.9 Gastro-esophageal reflux disease without esophagitis; E78.5 Hyperlipidemia, unspecified; I10 Essential (primary) hypertension; G40.909 Epilepsy, unspecified, not intractable, without status epilepticus; Z79.82 Long term (current) use of aspirin; Z79.01 Long term (current) use of anticoagulants; Z79.899 Other long term (current) drug therapy; Z79.4 Long term (current) use of insulin; Z88.8 Allergy status to other drugs, medicaments and biological substances
CPT/HCPCS: 80306; 81001; 99285

== ENCOUNTER 2018-07-29 04:00 | Emergency (ER) | payer MEDICARE, OTHER ==
[2018-07-29 04:10] VITALS: RESP 16; TEMP 96.9
--- NOTE | 2018-07-29 05:53 | ED ---
General Adult HPI - General Chief complaint: Recheck/Abnormal Lab/Rx Stated complaint: Mental Health Time Seen by Provider: 07/29/18 04:09 Source: patient Mode of arrival: EMS Limitations: no limitations - History of Present Illness Initial comments: Patient is a pleasantly demented 63-year-old gentleman who is sent to the emergency department today from the [facility] facility after he apparently became aggressive with staff. Staff provided no history did not addition the patient. Patient has no recall of events and does not know why he is here. Patient is calm and cooperative with no complaints upon arrival to the emergency department. - Related Data Home Medications Medication Instructions Recorded Confirmed Aspirin [Adult Low Dose Aspirin EC] 81 mg PO DAILY@0800 12/01/17 06/02/18 Atorvastatin Calcium [Lipitor] 20 mg PO HS 12/01/17 06/02/18 Cholecalciferol [Vitamin D3] 1,000 unit PO DAILY@0800 12/01/17 06/02/18 Clopidogrel Bisulfate [Plavix] 75 mg PO DAILY@0812/01/17 06/02/18 Cyanocobalamin [Vitamin B-12] 1,000 mcg PO DAILY@0800 12/01/17 06/02/18 Famotidine [Pepcid] 20 mg PO HS@199912/01/17 06/02/18 Gemfibrozil [Lopid] 300 mg PO BID@0800,199912/01/17 06/02/18 Lacosamide [Vimpat] 100 mg PO BID@0800,199912/01/17 06/02/18 Metoprolol Tartrate [Lopressor] 12.5 mg PO BID@0800,199912/01/17 06/02/18 Polyethylene Glycol 3350 [Miralax] 17 gm PO BID@0800,1999 PRN 12/01/17 06/02/18 Sennosides [Senna] 17.2 mg PO BID@0800,1999 PRN 12/01/17 06/02/18 glipiZIDE [Glucotrol] 10 mg PO BID@0900,209912/01/17 06/02/18 Insulin Glargine [Lantus] 20 unit SQ HS@209903/06/18 06/02/18 Mirtazapine [Remeron] 30 mg PO HS@199903/06/18 06/02/18 Divalproex [Depakote] 750 mg PO BID@0800,199903/08/18 06/02/18 Acarbose 100 mg PO BID@0900,1600 06/02/18 06/02/18 Donepezil HCl [Aricept] 5 mg PO HS@199906/02/18 06/02/18 Escitalopram [Lexapro] 5 mg PO DAILY@0900 06/02/18 06/02/18 Insulin Regular, Human [NovoLIN R] See Protocol SQ ACHS 06/02/18 06/02/18 risperiDONE [RisperDAL] 0.25 mg PO BID@0800,199906/02/18 06/02/18 Allergies Allergy/AdvReac Type Severity Reaction Status Date / Time metformin AdvReac Unknown Verified 07/29/18 04:10 Review of Systems ROS Statement: Those systems with pertinent positive or pertinent negative responses have been documented in the HPI. Limitations: ROS unobtainable due to patients medical condition (Chest) Past Medical History Past Medical History: Coronary Artery Disease (CAD), Dementia, Diabetes Mellitus , GERD/Reflux, Hyperlipidemia, Hypertension, Seizure Disorder Additional Past Medical History / Comment(s): angina, History of Any Multi-Drug Resistant Organisms: None Reported Past Surgical History: Unable to Obtain Additional Past Surgical History / Comment(s): 2 heart sugeries but is unsure what was done. Past Psychological History: No Psychological Hx Reported Smoking Status: Never smoker Past Alcohol Use History: None Reported Past Drug Use History: None Reported General Exam - General Exam Comments Initial Comments: Physical Exam GENERAL: Patient is well-developed and well-nourished. Patient is nontoxic and well- hydrated and is in no distress. HENT: Normocephalic, Atraumatic. EYES: PERRL, EOMI PULMONARY: Unlabored respirations. No audible rales rhonchi or wheezing was noted. CARDIOVASCULAR: There is a regular rate and rhythm without any murmurs gallops or rubs. ABDOMEN: Soft and nontender with normal bowel sounds. SKIN: Skin is clear with no lesions or rashes and otherwise unremarkable. : Deferred NEUROLOGIC: Alert and oriented to self MUSCULOSKELETAL: Normal extremities with adequate strength and full range of motion. No lower extremity swelling or edema. No calf tenderness. PSYCHIATRIC: [place] homicidal suicidal thoughts denies any intent to harm anybody Limitations: no limitations Limitations: no limitations Course Vital Signs 07/29/18 07/29/18 04:05 06:58 Temperature 96.9 F L Pulse Rate 65 64 Respiratory 16 16 Rate Blood Pressure 114/72 127/76 O2 Sat by Pulse 97 99 Oximetry Medical Decision Making - Medical Decision Making Patient was seen and evaluated history was obtained from patient and EMS Patient sent to Hospital from care facility after apparently becoming agitated with staff during the night Patient has been calm and cooperative with EMS, cooperative with us was evaluated by EPS who recommended discharge back to facility Disposition Clinical Impression: Agitation Disposition: HOME SELF-CARE Condition: Stable Instructions: Dementia (ED) Is patient prescribed a controlled substance at d/c from ED?: No Referrals: Nonstaff,Physician [Primary Care Provider] - 1-2 days
[2018-07-29 06:59] VITALS: BP 127/76; PULSE 64
== END 2018-07-29 08:05 | disposition home or self-care (01) ==
LOC: EC 04:00
DX: R45.1 Restlessness and agitation (principal); I25.10 Atherosclerotic heart disease of native coronary artery without angina pectoris; F03.90 Unspecified dementia, unspecified severity, without behavioral disturbance, psychotic disturbance, mood disturbance, and anxiety; E11.9 Type 2 diabetes mellitus without complications; K21.9 Gastro-esophageal reflux disease without esophagitis; E78.5 Hyperlipidemia, unspecified; I10 Essential (primary) hypertension; G40.909 Epilepsy, unspecified, not intractable, without status epilepticus; Z79.4 Long term (current) use of insulin; Z79.82 Long term (current) use of aspirin; Z79.899 Other long term (current) drug therapy; Z88.8 Allergy status to other drugs, medicaments and biological substances
CPT/HCPCS: 99284

== ENCOUNTER 2019-01-16 21:20 | Emergency (ER) | payer MEDICARE, OTHER ==
[2019-01-16 21:46] VITALS: BP 132/80; PULSE 105; RESP 16; TEMP 97.7
[2019-01-16 21:56] LABS: Glucose,Whole Blood 185 mg/dL (75-99)
--- NOTE | 2019-01-16 22:21 | ED ---
General Adult HPI - General Chief complaint: Recheck/Abnormal Lab/Rx Stated complaint: Agitation Time Seen by Provider: 01/16/19 21:44 Source: patient, EMS Mode of arrival: EMS Limitations: altered mental status - History of Present Illness Initial comments: Patient is a pleasantly demented 63-year-old gentleman who lives at [facility]. Patient is brought to the ER today by ambulance for evaluation of agitation. Patient reports that he got upset he denies any other complaints. EMS reports that upon their arrival patient was very agitated. When they talked with him he stated that he wanted Taco Greer and the advised him that if he came in the hospital he could tacos. Told he could have tacos patient was completely cooperative. Apparently the dayshift nurse caring for the patient had reported that he is out of one of his medications or that they do not have a current order for us a centimeters to the ER to receive an order for this medication. However when we contacted the snf to find out which medication they were referring to the nurse would care for him during the day had left for the night and the nighttime nurse was uncertain what this was referencing. - Related Data Home Medications Medication Instructions Recorded Confirmed Aspirin [Adult Low Dose Aspirin EC] 81 mg PO DAILY@0800 12/01/17 01/16/19 Atorvastatin Calcium [Lipitor] 20 mg PO HS 12/01/17 01/16/19 Clopidogrel Bisulfate [Plavix] 75 mg PO DAILY@0800 12/01/17 01/16/19 Cyanocobalamin [Vitamin B-12] 1,000 mcg PO DAILY@0800 12/01/17 01/16/19 Lacosamide [Vimpat] 100 mg PO BID 12/01/17 01/16/19 Polyethylene Glycol 3350 [Miralax] 17 gm PO DAILY@0800 12/01/17 01/16/19 glipiZIDE [Glucotrol] 10 mg PO BID@0900,2100 12/01/17 01/16/19 Mirtazapine [Remeron] 30 mg PO HS@199903/06/18 01/16/19 Divalproex [Depakote] 750 mg PO TID@0800,1200,1800 03/08/18 01/16/19 Acarbose 100 mg PO BID@0900,1600 06/02/18 01/16/19 Escitalopram [Lexapro] 5 mg PO DAILY@0800 06/02/18 01/16/19 Insulin Regular, Human [NovoLIN R] See Protocol SQ AC-TID 06/02/18 01/16/19 risperiDONE [RisperDAL] 0.25 mg PO BID 06/02/18 01/16/19 Fenofibrate Nanocrystallized 160 mg PO DAILY@0800 01/16/19 01/16/19 [Triglide] Insulin Detemir (Levemir) [Levemir] 8 unit SQ HS@199901/16/19 01/16/19 Ipratropium-Albuterol Nebulize 3 ml INHALATION RT-QID PRN 01/16/19 01/16/19 [Duoneb 0.5 mg-3 mg/3 ml Soln] Pantoprazole Sodium [Protonix] 20 mg PO DAILY@0900 01/16/19 01/16/19 Sennosides-Docusate Sodium 1 tab PO BID@0800,1600 01/16/19 01/16/19 [Senokot-S] Tamsulosin [Flomax] 0.4 mg PO HS 01/16/19 01/16/19 Allergies Allergy/AdvReac Type Severity Reaction Status Date / Time metformin AdvReac Unknown Verified 01/16/19 21:41 Review of Systems ROS Statement: Those systems with pertinent positive or pertinent negative responses have been documented in the HPI. Limitations: ROS unobtainable due to patients medical condition (dementia) Past Medical History Past Medical History: Coronary Artery Disease (CAD), Dementia, Diabetes Mellitus, GERD/Reflux, Hyperlipidemia, Hypertension, Seizure Disorder Additional Past Medical History / Comment(s): angina, History of Any Multi-Drug Resistant Organisms: None Reported Past Surgical History: Unable to Obtain Additional Past Surgical History / Comment(s): 2 heart sugeries but is unsure what was done. Past Psychological History: No Psychological Hx Reported Smoking Status: Never smoker Past Alcohol Use History: None Reported Past Drug Use History: None Reported General Exam - General Exam Comments Initial Comments: Physical Exam GENERAL: Pleasantly demented, chronically ill appearing HENT: Normocephalic, Atraumatic. EYES: PERRL, EOMI PULMONARY: Unlabored respirations. CARDIOVASCULAR: RRR ABDOMEN: Soft and nontender with normal bowel sounds. Eating well SKIN: Skin is clear with no lesions or rashes and otherwise unremarkable. : Deferred NEUROLOGIC: Oriented to person, aware he lives in [facility], asking repeatedly to be taken back to [facility] MUSCULOSKELETAL: Normal extremities with adequate strength and full range of motion. No lower extremity swelling or edema. No calf tenderness. PSYCHIATRIC: Demented Limitations: altered mental status Course Vital Signs 01/16/19 01/16/19 21:23 21:47 Temperature 97.7 F Pulse Rate 105 H Pulse Rate [ 105 H Pulse Oximetery ] Respiratory 16 Rate Blood Pressure 132/80 O2 Sat by Pulse 99 Oximetry Medical Decision Making - Medical Decision Making The patient was seen and evaluated history was obtained from EMS and attempts to contact the snf This patient in the past for agitation. He is very easily correctable. [place] patient arrived on a night in which the ER was having a potluck and was able to be given tacos which calmed him. We are unsuccessful in contacting the snf regarding what medication he needed. He did receive by mouth Ativan while here and was discharged home in stable condition. - Lab Data Lab Results 01/16/19 Range/Units 21:54 POC Glucose (mg/dL) 185 H (75-99) mg/dL POC Glu Inorganic Chemistry Professor ID Francisca Tejada A Disposition Clinical Impression: Encounter for medication refill Disposition: HOME SELF-CARE Condition: Stable Instructions (If sedation given, give patient instructions): Dementia (ED) Is patient prescribed a controlled substance at d/c from ED?: No Referrals: SonChaunceyMD [Primary Care Provider] - 1-2 days
[2019-01-17] MEDS ORDERED: LORazepam 2 MG/ML INJ IM STA (00:23)
[2019-01-17] MEDS ORDERED: LORazepam 1 MG TAB PO STA ×2 (00:54→00:56)
== END 2019-01-17 02:34 | disposition home or self-care (01) ==
LOC: EC 21:20
DX: Z76.0 Encounter for issue of repeat prescription (principal); I25.10 Atherosclerotic heart disease of native coronary artery without angina pectoris; F03.90 Unspecified dementia, unspecified severity, without behavioral disturbance, psychotic disturbance, mood disturbance, and anxiety; E11.9 Type 2 diabetes mellitus without complications; K21.9 Gastro-esophageal reflux disease without esophagitis; E78.5 Hyperlipidemia, unspecified; I10 Essential (primary) hypertension; G40.909 Epilepsy, unspecified, not intractable, without status epilepticus; Z79.82 Long term (current) use of aspirin; Z79.01 Long term (current) use of anticoagulants; Z79.4 Long term (current) use of insulin; Z79.899 Other long term (current) drug therapy; Z88.8 Allergy status to other drugs, medicaments and biological substances; Z53.29 Procedure and treatment not carried out because of patient's decision for other reasons
CPT/HCPCS: 36415; 99284

== ENCOUNTER 2019-01-20 12:14 | Emergency (ER) | payer MEDICARE ==
[2019-01-20 12:24] VITALS: RESP 18; TEMP 98.4
--- NOTE | 2019-01-20 13:08 | ED ---
Psych HPI - General Chief Complaint: Psychiatric Symptoms Stated Complaint: Aggression Time Seen by Provider: 01/20/19 12:30 Source: patient, EMS, RN notes reviewed Mode of arrival: EMS Limitations: no limitations - History of Present Illness Initial Comments: 63-year-old male presents emergency Department from [facility] for psychiatric evaluation. Patient has underlying dementia, confusion and aggressive behavior at times. Patient has been it out multiple times for the similar complaint in the emergency department. At this time patient is calm and collective and has no complaints. He has no physical complaints denies any drug or alcohol abuse. - Related Data Home Medications Medication Instructions Recorded Confirmed Aspirin [Adult Low Dose Aspirin EC] 81 mg PO DAILY@0800 12/01/17 01/20/19 Atorvastatin Calcium [Lipitor] 20 mg PO HS 12/01/17 01/20/19 Clopidogrel Bisulfate [Plavix] 75 mg PO DAILY@0800 12/01/17 01/20/19 Lacosamide [Vimpat] 100 mg PO BID 12/01/17 01/20/19 Polyethylene Glycol 3350 [Miralax] 17 gm PO DAILY@0800 12/01/17 01/20/19 glipiZIDE [Glucotrol] 10 mg PO BID@0800,2100 12/01/17 01/20/19 Mirtazapine [Remeron] 30 mg PO HS@199903/06/18 01/20/19 Divalproex [Depakote] 750 mg PO TID@0800,1200,1800 03/08/18 01/20/19 Acarbose 100 mg PO BID@0800,1600 06/02/18 01/20/19 Escitalopram [Lexapro] 5 mg PO DAILY@0800 06/02/18 01/20/19 Insulin Regular, Human [NovoLIN R] See Protocol SQ AC-TID 06/02/18 01/20/19 risperiDONE [RisperDAL] 0.25 mg PO BID 06/02/18 01/20/19 Fenofibrate Nanocrystallized 160 mg PO DAILY@0800 01/16/19 01/20/19 [Triglide] Insulin Detemir (Levemir) [Levemir] 8 unit SQ HS@199901/16/19 01/20/19 Ipratropium-Albuterol Nebulize 3 ml INHALATION RT-Q6H PRN 01/16/19 01/20/19 [Duoneb 0.5 mg-3 mg/3 ml Soln] Pantoprazole Sodium [Protonix] 20 mg PO DAILY@0900 01/16/19 01/20/19 Sennosides-Docusate Sodium 1 tab PO BID@0800,1600 01/16/19 01/20/19 [Senokot-S] Tamsulosin [Flomax] 0.4 mg PO HS 01/16/19 01/20/19 LORazepam ORAL CONC [Ativan 2 mg PO Q8H PRN 01/20/19 01/20/19 Intensol] Vitamin B Complex 1 cap PO DAILY@0800 01/20/19 01/20/19 Allergies Allergy/AdvReac Type Severity Reaction Status Date / Time metformin AdvReac Unknown Verified 01/20/19 12:30 Review of Systems ROS Statement: Those systems with pertinent positive or pertinent negative responses have been documented in the HPI. ROS Other: All systems not noted in ROS Statement are negative. Past Medical History Past Medical History: Coronary Artery Disease (CAD), Dementia, Diabetes Mellitus, GERD/Reflux, Hyperlipidemia, Hypertension, Seizure Disorder Additional Past Medical History / Comment(s): angina, History of Any Multi-Drug Resistant Organisms: None Reported Past Surgical History: Unable to Obtain Additional Past Surgical History / Comment(s): 2 heart sugeries but is unsure what was done. Past Psychological History: No Psychological Hx Reported Smoking Status: Never smoker Past Alcohol Use History: None Reported Past Drug Use History: None Reported General Exam Limitations: no limitations General appearance: alert, in no apparent distress Head exam: Present: atraumatic, normocephalic, normal inspection Eye exam: Present: normal appearance, PERRL, EOMI. Absent: scleral icterus, conjunctival injection, periorbital swelling ENT exam: Present: normal exam, normal oropharynx, mucous membranes moist Neck exam: Present: normal inspection, full ROM. Absent: tenderness, meningismus, lymphadenopathy Respiratory exam: Present: normal lung sounds bilaterally. Absent: respiratory distress, wheezes, rales, rhonchi, stridor Cardiovascular Exam: Present: regular rate, normal rhythm, normal heart sounds. Absent: systolic murmur, diastolic murmur, rubs, gallop, clicks GI/Abdominal exam: Present: soft, normal bowel sounds. Absent: distended, tenderness, guarding, rebound, rigid Neurological exam: Present: alert, oriented X3, CN II-XII intact Skin exam: Present: warm, dry, intact, normal color. Absent: rash Course Vital Signs 01/20/19 12:21 Temperature 98.4 F Pulse Rate 79 Respiratory 18 Rate Blood Pressure 120/69 O2 Sat by Pulse 98 Oximetry Medical Decision Making - Medical Decision Making 63-year-old male presented for psychiatric evaluation by EPS is discussed with psychiatrist recommends patient be discharged. Patient has underlying dementia no complaints at this time. - Lab Data Lab Results 01/20/19 Range/Units 12:40 Urine Opiates Screen Not Detected (NotDetected) Ur Oxycodone Screen Not Detected (NotDetected) Urine Methadone Screen Not Detected (NotDetected) Ur Propoxyphene Screen Not Detected (NotDetected) Ur Barbiturates Screen Not Detected (NotDetected) U Tricyclic Antidepress Not Detected (NotDetected) Ur Phencyclidine Scrn Not Detected (NotDetected) Ur Amphetamines Screen Not Detected (NotDetected) U Methamphetamines Scrn Not Detected (NotDetected) U Benzodiazepines Scrn Detected H (NotDetected) Urine Cocaine Screen Not Detected (NotDetected) U Marijuana (THC) Screen Not Detected (NotDetected) Disposition Clinical Impression: Dementia Disposition: DC/TRNS INTERMEDIATE CARE FAC Condition: Stable Instructions (If sedation given, give patient instructions): Dementia (ED) Additional Instructions: Please return to the Emergency Department if symptoms worsen or any other concerns. Is patient prescribed a controlled substance at d/c from ED?: No Referrals: Chauncey Barrera MD [Primary Care Provider] - 1-2 days Time of Disposition: 13:27 - Out of Hospital Transfer - Req. Specs Out of Hospital Transfer - Requested Specifics: Other Non-Acute ([facility])
[2019-01-20 13:12] LABS: Amphetamine Screen,Urine Not Detected (NotDetected); Barbiturate Screen,Urine Not Detected (NotDetected); Benzodiazepines Screen,Urine Detected (NotDetected); Cocaine Screen,Urine Not Detected (NotDetected); Methadone Screen, Urine Not Detected (NotDetected); Opiate Screen,Urine Not Detected (NotDetected); Oxycodone Screen, Urine Not Detected (NotDetected); Phencyclidine Screen,Urine Not Detected (NotDetected); Tricyclic Antidepressant,Urine Not Detected (NotDetected); Urn Cannabinoid Scrn Not Detected (NotDetected)
[2019-01-20 15:14] VITALS: BP 121/70; PULSE 80
== END 2019-01-20 15:14 ==
LOC: EC 12:14
DX: F03.90 Unspecified dementia, unspecified severity, without behavioral disturbance, psychotic disturbance, mood disturbance, and anxiety (principal); I25.10 Atherosclerotic heart disease of native coronary artery without angina pectoris; E11.9 Type 2 diabetes mellitus without complications; K21.9 Gastro-esophageal reflux disease without esophagitis; E78.5 Hyperlipidemia, unspecified; I10 Essential (primary) hypertension; G40.909 Epilepsy, unspecified, not intractable, without status epilepticus; Z79.82 Long term (current) use of aspirin; Z79.02 Long term (current) use of antithrombotics/antiplatelets; Z79.4 Long term (current) use of insulin; Z79.899 Other long term (current) drug therapy; Z88.8 Allergy status to other drugs, medicaments and biological substances
CPT/HCPCS: 80306; 82075; 99284